=== PATIENT | female | born 1945 | race African-American/Black ===

== ENCOUNTER 2023-07-04 12:42 | Inpatient (IN) | payer BC, MEDICARE ==
[~2023-07-04] VITALS: Ht 172.7 cm; Wt 63.5 kg
[2023-07-04 12:56] VITALS: O2SAT 100
[2023-07-04 16:28] LABS: BASOPHILS % 1.1 % (0.0-2.0); EOSINOPHILS % 1.3 % (0.0-5.0); HEMATOCRIT. 31.3 % (36.0-48.0); HEMOGLOBIN. 10.5 g/dL (12.0-16.0); MEAN CORPUSCULAR HEMOGLOBIN 30.3 pg (28.0-32.0); MEAN CORPUSCULAR HGB CONC 33.4 g/dL (31.0-37.0); MEAN CORPUSCULAR VOLUME 90.8 fL (81.0-99.0); MEAN PLATELET VOLUME 8.8 fl (7.4-10.4); NEUTROPHILS % 60.6 % (40.0-76.0); PLATELET 249 x1000/uL (130-400); RED BLOOD CELL COUNT 3.45 mill/uL (4.2-5.4); RED CELL DISTRIBUTION WIDTH 12.7 % (11.6-14.6); WHITE BLOOD COUNT 6.1 x1000/uL (4.5-11.0)
[2023-07-04] MEDS ORDERED: ONDANSETRON HCL 4MG/2ML INJ IV ONE (16:30)
[2023-07-04] MEDS ORDERED: MORPHINE SULFATE 4 MG/ML CPJ (NOT FOR IM USE) IV ONE (16:30)
[2023-07-04 16:44] LABS: PARTIAL THROMBOPLASTIN TIME 27.6 sec (23.4-31.0); PROTHROMBIN TIME 10.5 sec (9.6-11.0)
[2023-07-04 16:47] LABS: CALCIUM 9.2 mg/dL (8.7-10.4); CARBON DIOXIDE 25 mEq/L (21-32); CHLORIDE 98 mEq/L (98-107); CREATININE 0.7 mg/dL (0.6-1.0); GLUCOSE 91 mg/dL (70-105); POTASSIUM 3.9 mEq/L (3.5-5.1); SODIUM 131 mEq/L (136-145); UREA NITROGEN BLOOD 13 mg/dL (9-23)
[2023-07-04] MEDS: NEBIVOLOL HCL 5 MG TABLET PO SCH (21:00)
[2023-07-05] MEDS ORDERED: ONDANSETRON HCL 4MG/2ML INJ IV NR (00:30)
[2023-07-05] MEDS ORDERED: MORPHINE SULFATE 4 MG/ML CPJ (NOT FOR IM USE) IV NR (00:30)
[2023-07-05 01:47] VITALS: BP 145/70; PULSE 93; RESP 18; TEMP 102
[2023-07-05 04:00] VITALS: BP 167/97; PULSE 91; RESP 18; TEMP 97.8
[2023-07-05 07:30] LABS: HEMATOCRIT. 29.1 % (36.0-48.0); HEMOGLOBIN. 9.7 g/dL (12.0-16.0); MEAN CORPUSCULAR HEMOGLOBIN 30.8 pg (28.0-32.0); MEAN CORPUSCULAR HGB CONC 33.2 g/dL (31.0-37.0); MEAN CORPUSCULAR VOLUME 92.6 fL (81.0-99.0); MEAN PLATELET VOLUME 9.2 fl (7.4-10.4); PLATELET 208 x1000/uL (130-400); RED BLOOD CELL COUNT 3.14 mill/uL (4.2-5.4); RED CELL DISTRIBUTION WIDTH 12.7 % (11.6-14.6); WHITE BLOOD COUNT 5.4 x1000/uL (4.5-11.0)
[2023-07-05 07:35] LABS: CALCIUM 9.2 mg/dL (8.7-10.4); CARBON DIOXIDE 28 mEq/L (21-32); CHLORIDE 100 mEq/L (98-107); CREATININE 0.8 mg/dL (0.6-1.0); GLUCOSE 92 mg/dL (70-105); SODIUM 134 mEq/L (136-145); UREA NITROGEN BLOOD 17 mg/dL (9-23)
[2023-07-05 08:00] VITALS: BP 117/64; PULSE 80; RESP 20; TEMP 96.4
[2023-07-05 09:18] LABS: DIFFERENTIAL COMMENT 1
[2023-07-05] MEDS ORDERED: POLYETHYLENE GLYCOL 3350 (17GM) 1 DOSE PACK PO NR (10:45)
[2023-07-05] MEDS ORDERED: NALOXONE HCL 0.4MG/ML VIAL IV PRN (10:45)
[2023-07-05] MEDS: HYDROCODONE/ACETAMINOPHEN 5/325MG TABLET PO PRN ×3 (11:33→22:09)
[2023-07-05 12:00] VITALS: BP 128/78; PULSE 78; RESP 17; TEMP 96.3
[2023-07-05] MEDS ORDERED: PNEUMOCOCCAL 23-VAL P-SAC VAC 0.5 ML IM ONE (15:00)
[2023-07-05 16:00] VITALS: BP 140/63; PULSE 94; RESP 19; TEMP 96.8
[2023-07-05 19:05] LABS: HEPATITIS B SURFACE ANTIGEN NEGATIVE (Negative); HEPATITIS C AB NON REACTIVE (Neg) (Negative)
[2023-07-05 20:00] VITALS: BP 118/58; PULSE 79; RESP 17; TEMP 97.6
[2023-07-05] MEDS: NEBIVOLOL HCL 5 MG TABLET PO SCH (21:49)
[2023-07-06] VITALS: BP 140/69; PULSE 78; RESP 17; TEMP 98.1
[2023-07-06 04:00] VITALS: BP 121/62; PULSE 80; RESP 17; TEMP 96.4
[2023-07-06 07:00] LABS: BASOPHILS % 0.9 % (0.0-2.0); EOSINOPHILS % 5.9 % (0.0-5.0); HEMATOCRIT. 29.5 % (36.0-48.0); HEMOGLOBIN. 10.2 g/dL (12.0-16.0); LYMPHOCYTES % 23.9 % (20.0-50.0); MEAN CORPUSCULAR HEMOGLOBIN 31.1 pg (28.0-32.0); MEAN CORPUSCULAR HGB CONC 34.5 g/dL (31.0-37.0); MEAN PLATELET VOLUME 9.4 fl (7.4-10.4); MONOCYTES % 13.4 % (2.0-8.0); NEUTROPHILS % 55.9 % (40.0-76.0); PLATELET 246 x1000/uL (130-400); RED BLOOD CELL COUNT 3.28 mill/uL (4.2-5.4); RED CELL DISTRIBUTION WIDTH 12.7 % (11.6-14.6)
[2023-07-06 07:13] LABS: CALCIUM 9.3 mg/dL (8.7-10.4); CARBON DIOXIDE 26 mEq/L (21-32); CHLORIDE 100 mEq/L (98-107); CHOLESTEROL 198 mg/dL (<200); CREATININE 0.8 mg/dL (0.6-1.0); GLUCOSE 96 mg/dL (70-105); HDL CHOLESTEROL 65 mg/dL (>65); LDL CHOLESTEROL 101 mg/dL (5-100); POTASSIUM 4.2 mEq/L (3.5-5.1); SODIUM 134 mEq/L (136-145); TRIGLYCERIDE 59 mg/dL (0-150); UREA NITROGEN BLOOD 18 mg/dL (9-23)
[2023-07-06 08:00] VITALS: BP 134/63; PULSE 76; RESP 18; TEMP 98.1
[2023-07-06] MEDS: NEBIVOLOL HCL 5 MG TABLET PO SCH (08:55)
[2023-07-06] MEDS: HYDROCODONE/ACETAMINOPHEN 5/325MG TABLET PO PRN (09:00)
[2023-07-06 12:00] VITALS: BP 151/57; PULSE 76; RESP 19; TEMP 98.8
[2023-07-06 16:00] VITALS: BP 133/57; PULSE 84; RESP 18; TEMP 98.2
[2023-07-06 16:56] VITALS: BP 133/57; PULSE 84; TEMP 98.2
[2023-07-06 18:14] LABS: PLATELET ESTIMATE NORMAL
== END 2023-07-06 18:47 | disposition home health service (06) | DRG 552 ==
LOC: ER 12:42 → MICUSO 16:26 → 6WST 07-05 01:03
PROVIDERS: ADMIT Specialist; ATTEND Specialist
DX: S32.110A Nondisplaced Zone I fracture of sacrum, initial encounter for closed fracture (principal); S32.592A Other specified fracture of left pubis, initial encounter for closed fracture; E78.5 Hyperlipidemia, unspecified; I10 Essential (primary) hypertension; M81.0 Age-related osteoporosis without current pathological fracture; Z90.710 Acquired absence of both cervix and uterus; W18.39XA Other fall on same level, initial encounter; Y92.89 Other specified places as the place of occurrence of the external cause
CPT/HCPCS: 36415; 72192; 73521; 73700; 80048; 80061; 85025; 86705; 86850; 86900; 87340; 90732; 97116; 97162; 97166; 99291; J2270; J2405